=== PATIENT | female | born 1955 | race Caucasian/White ===

== ENCOUNTER 2016-08-05 14:27 | Emergency (ER) | payer MEDICARE ==
[2016-06-24 10:58] VITALS: BMI 31.0
[~2016-08-05 14:27] MED LIST: ACETAMINOPHEN500 M1 PO; BENADRYL50 MG PO; CARAFATE1 G PO; CELEXA20 MG PO; CELEXA40 MG PO; COLACE100 MG PO; COREG12.5 MG PO; CORTEF 5 MG TAB5 MG PO; CORTEF10 MG PO; DEMEROL50 MG PO; DILAUDID2 MG PO; DILAUDID4 MG PO; DILAUDID8 MG PO; ELAVIL25 MG PO; GLUCOPHAGE500 MG PO; HARVONI PO; HYDROCODONE-APA1 TAB PO; IMODIUM2 MG PO; K-TAB10 MEQ PO; LASIX20 MG PO; MERREM IV1 G/VIAL IV; NORCO 10/325 TA1 TA1 PO; NYSTATIN; PERCOCET 10/3251 TA1 PO; PERCOCET 7.5/321 TAB PO; PHENERGAN25 M1 PO; PRILOSEC20 MG PO; PROTONIX40 MG PO; SALINE FLUSH10 ML IV; SOMA350 MG PO; TUMS500 MG PO; TYLENOL W/CODEI1 TAB PO; VANCOMYCIN H1 G/VIA1 IV; XANAX0.5 MG PO; ZOFRAN4 MG PO
[2016-08-05 14:52] LABS: BASOPHILS 0.3 % (0.0-2.0); EOSINOPHILS 3.1 % (0-7); HEMOGLOBIN 16.6 g/dL (12-16); IMMATURE GRANULOCYTES 0.5 % (0-5); LYMPHOCYTES 37.5 % (15-50); MCH 32.8 pg (26.0-34.0); MCHC 35.3 g/dL (31.0-37.0); MCV 92.9 fL (80.0-100.0); MEAN PLATELET VOLUME 9.8 fL (7.4-10.4); MONOCYTES 5.6 % (2-11); RBC 5.06 10x6/uL (4.00-5.40); RDW 12.4 % (11.5-14.5); WBC 12.8 10x3/uL (4.8-10.8)
[2016-08-05 15:23] LABS: PLATELET COUNT 255 10x3/uL (130-400)
[2016-08-05 15:26] LABS: ALBUMIN 4.5 g/dL (3.4-5.0); ANION GAP 15.1 mmol/L (8-16); BILIRUBIN - TOTAL 0.53 mg/dL (0.2-1.3); CALCIUM 9.8 mg/dL (8.5-10.1); CARBON DIOXIDE 27.4 mmol/L (21.0-32.0); POTASSIUM - SERUM 4.5 mmol/L (3.5-5.1)
[2016-08-05 17:30] LABS: UDS - AMPHET NEGATIVE QUAL (NEGATIVE); UDS - BARB NEGATIVE QUAL (NEGATIVE); UDS - BENZO NEGATIVE QUAL (NEGATIVE); UDS - COCAINE NEGATIVE QUAL (NEGATIVE); UDS - METH NEGATIVE QUAL (NEGATIVE); UDS - OPIATE NEGATIVE QUAL (NEGATIVE); UDS - PCP NEGATIVE QUAL (NEGATIVE); UDS - THC POSITIVE QUAL (NEGATIVE)
[2016-08-05 17:49] LABS: APPEARANCE CLEAR (CLEAR); BILIRUBIN NEGATIVE (NEGATIVE); COLOR YELLOW (YELLOW); GLUCOSE NEGATIVE (NEGATIVE); KETONE MODERATE mg/dL (NEGATIVE); LEUKOCYTE ESTERASE TRACE (NEGATIVE); PROTEIN NEGATIVE (NEGATIVE); SPECIFIC GRAVITY 1.015 (1.005-1.020); UROBILINOGEN NORMAL (NORMAL)
[2016-08-05 17:50] LABS: EPITHELIAL CELLS 0-5 /hpf (0-5); RED CELLS - URINE 0-5 /hpf (0-5); WHITE CELLS - URINE 0-5 /hpf (0-5)
[2016-08-05 17:51] LABS: BACTERIA FEW /hpf (NONE SEEN); NITRITE NEGATIVE (NEGATIVE)
== END 2016-08-05 18:55 | disposition home or self-care (01) ==
LOC: D.ER 14:27
PROVIDERS: Emergency Medicine
DX: R10.9 Unspecified abdominal pain (principal); R19.7 Diarrhea, unspecified; K52.9 Noninfective gastroenteritis and colitis, unspecified; E27.1 Primary adrenocortical insufficiency; J44.9 Chronic obstructive pulmonary disease, unspecified; E11.9 Type 2 diabetes mellitus without complications; F17.200 Nicotine dependence, unspecified, uncomplicated

== ENCOUNTER → 2016-09-17 14:43 | Outpatient (CLI) | payer MEDICARE ==
[2016-06-24 10:58] VITALS: BMI 31.0
== END | disposition home or self-care (01) ==
LOC: D.LABREF 14:43
DX: A02.0 Salmonella enteritis (principal)

== ENCOUNTER → 2016-09-25 12:46 | Outpatient (CLI) | payer MEDICARE ==
[2016-06-24 10:58] VITALS: BMI 31.0
[2016-09-25 14:19] LABS: ALBUMIN 4.1 g/dL (3.4-5.0); ALKALINE PHOSPHATASE 67 U/L (46-116); ALT (SGPT) 22 U/L (10-68); BILIRUBIN - TOTAL 0.38 mg/dL (0.2-1.3); CARBON DIOXIDE 19.7 mmol/L (21.0-32.0); CHLORIDE - SERUM 105 mmol/L (98-107); CREATININE - SERUM 0.4 mg/dL (0.6-1.3); POTASSIUM - SERUM 5.4 mmol/L (3.5-5.1); PROTEIN - SERUM 7.4 g/dL (6.4-8.2); SODIUM 139 mmol/L (136-145); UREA NITROGEN 12 mg/dL (7-18); eGFR NON AFRICAN AMERICAN > 90 mL/min (90-120)
[2016-09-25 14:42] LABS: CALC OSMOLALITY 276 mosm/kg (275-300); CALCIUM 9.1 mg/dL (8.5-10.1); GLUCOSE 74 mg/dL (74-106)
== END | disposition home or self-care (01) ==
LOC: D.LABREF 12:46
PROVIDERS: Student in an Organized Health Care Education/Training Program
DX: R10.11 Right upper quadrant pain (principal); R50.9 Fever, unspecified

== ENCOUNTER → 2016-10-06 10:56 | Outpatient (CLI) | payer MEDICARE ==
[2016-06-24 10:58] VITALS: BMI 31.0
== END | disposition home or self-care (01) ==
LOC: D.CT 10-02 10:30
DX: R10.11 Right upper quadrant pain (principal)

== ENCOUNTER 2016-12-15 08:58 | Outpatient (CLI) | payer MEDICARE ==
[~2016-12-15] VITALS: Ht 160 cm; Wt 86.4 kg
[2016-12-15] MEDS ORDERED: OXYCONTIN10 MG PO (09:15)
[2016-12-15 09:20] VITALS: BP 142/85; Ht 160 cm; Wt 86.4 kg
--- NOTE | 2016-12-15 09:32 | NUR ---
ACCESSED POWER PORT WITH 19G X 1 INCH NEEDLE, SMALL BLOOD RETURN NOTED, DOES NOT DRAW WELL, PATIENT STATES "THEY CAN'T GET BLOOD FROM IT." FLUSHED WITH 10ML NS AND 5ML OF 100U/ML HEPARIN AND THEN REMOVED NEEDLE, TOLERATED WELL. BANDAID OVER SITE.
== END 2016-12-15 09:45 | disposition home or self-care (01) ==
LOC: D.OPS 08:58
DX: Z45.2 Encounter for adjustment and management of vascular access device (principal)

== ENCOUNTER → 2017-02-09 13:00 | Outpatient (CLI) | payer MEDICARE ==
[~2017-02-09 13:00] MED LIST changes: +OXYCONTIN10 MG PO
[2017-02-09 14:05] VITALS: BP 139/70; Ht 160 cm
--- NOTE | 2017-02-09 14:16 | NUR ---
1300 AMBULATORY TO 2508 FOR PORT FLUSH. 1320 ALLERGIES REVIEWED WITH PT. Catalino HARPER R.N. 1340 USING ASEPTIC TECHNIQUE, RIGHT UPPER CHEST PORT ACCESSED WITH 19 GAUGE 1.0" INCH NEEDLE. UNABLE TO DRAW BACK A BLOOD RETURN. PT STATES THERE WAS NOT A BLOOD RETURN @ LAST PORT FLUSH. SALINE FLUSH ADMINISTERED WITH NO PUFFING OR SWELLING @ SITE. PT STATES SHE CAN TASTE SALINE. HEPARIN FLUSH SOLUTION 5ML ADMINISTERED. NO COMPLAINTS OF PAIN VOICED. BANDAID TO SITE. Catalino HARPER R.N. 135 PT GIVEN DISCHARGE INSTRUCTIONS & MED REC. VOICED UNDERSTANDING. RELEASED AMBULATORY FROM UNIT WITH FRIEND. Catalino HARPER R.N.
== END | disposition home or self-care (01) ==
LOC: D.OPS 02-04 09:42
DX: Z45.2 Encounter for adjustment and management of vascular access device (principal)

== ENCOUNTER 2017-05-05 09:36 | Outpatient (CLI) | payer MEDICARE ==
[2017-05-05 10:22] VITALS: BMI 33.7
--- NOTE | 2017-05-05 16:52 | NUR ---
1045 PORT ATTEMPTED UNSUCCESSFULLY WITH 20G 1" BY THIS NURSE. PORT ACCESSED AND FLUSED SUCCESSFULLY WITH 19 G 11/2" BY FRANCINE DIAMOND RN, FLUSHED WITH NS AND HEPARIN 5CC. NO BLOOD RETURN HOWEVER. 1058 RELEASED AMB.
== END 2017-05-05 10:58 | disposition home or self-care (01) ==
LOC: D.OPS 09:36
DX: Z45.2 Encounter for adjustment and management of vascular access device (principal)

== ENCOUNTER → 2017-08-11 15:41 | Outpatient (CLI) | payer MEDICARE | END | disposition home or self-care (01) | LOC: D.OPS 15:30 | DX: Z45.2 Encounter for adjustment and management of vascular access device (principal) ==

== ENCOUNTER 2017-10-07 22:22 | Emergency (ER) | payer MEDICARE ==
[2017-10-07 23:35] LABS: BASOPHILS 0.2 % (0-2); EOSINOPHILS 2.4 % (0-7); HEMATOCRIT 41.8 % (36.0-48.0); HEMOGLOBIN 13.9 g/dL (12-16); IMMATURE GRANULOCYTES 0.5 % (0-5); MCH 30.3 pg (26.0-34.0); MCHC 33.3 g/dL (31.0-37.0); MCV 91.1 fL (80.0-100.0); MEAN PLATELET VOLUME 9.8 fL (7.4-10.4); MONOCYTES 4.7 % (2-11); NEUTROPHILS 73.2 % (40-80); PLATELET COUNT 221 10x3/uL (130-400); RBC 4.59 10x6/uL (4.00-5.40); RDW 14.5 % (11.5-14.5); WBC 13.1 10x3/uL (4.8-10.8)
[2017-10-07 23:39] LABS: APPEARANCE CLEAR (CLEAR); BILIRUBIN NEGATIVE (NEGATIVE); COLOR YELLOW (YELLOW); GLUCOSE NEGATIVE (NEGATIVE); KETONE NEGATIVE (NEGATIVE); NITRITE NEGATIVE (NEGATIVE); PROTEIN NEGATIVE (NEGATIVE); SPECIFIC GRAVITY 1.015 (1.005-1.020); UROBILINOGEN NORMAL (NORMAL)
[2017-10-07 23:45] LABS: ALBUMIN 3.8 g/dL (3.4-5.0); ANION GAP 15.7 mmol/L (8-16); BILIRUBIN - TOTAL 0.18 mg/dL (0.2-1.3); CALCIUM 8.8 mg/dL (8.5-10.1); CARBON DIOXIDE 26.1 mmol/L (21.0-32.0); CREATININE - SERUM 1.1 mg/dL (0.6-1.3); POTASSIUM - SERUM 3.8 mmol/L (3.5-5.1); PROTEIN - SERUM 7.6 g/dL (6.4-8.2)
== END 2017-10-08 00:25 | disposition home or self-care (01) ==
LOC: D.ER 22:22
PROVIDERS: Emergency Medicine
DX: R10.9 Unspecified abdominal pain (principal); F17.200 Nicotine dependence, unspecified, uncomplicated; E27.1 Primary adrenocortical insufficiency; J44.9 Chronic obstructive pulmonary disease, unspecified; E11.9 Type 2 diabetes mellitus without complications

== ENCOUNTER 2017-10-11 13:31 | Emergency (ER) | payer MEDICARE ==
[2017-10-11 14:46] LABS: BASOPHILS 0.3 % (0-2); EOSINOPHILS 3.4 % (0-7); HEMATOCRIT 42.8 % (36.0-48.0); HEMOGLOBIN 14.2 g/dL (12-16); IMMATURE GRANULOCYTES 0.4 % (0-5); LYMPHOCYTES 22.2 % (15-50); MCH 30.5 pg (26.0-34.0); MCHC 33.2 g/dL (31.0-37.0); MEAN PLATELET VOLUME 9.6 fL (7.4-10.4); NEUTROPHILS 67.7 % (40-80); PLATELET COUNT 217 10x3/uL (130-400); RBC 4.65 10x6/uL (4.00-5.40); RDW 14.3 % (11.5-14.5); WBC 12.1 10x3/uL (4.8-10.8)
[2017-10-11 15:06] LABS: ANION GAP 13.9 mmol/L (8-16); BILIRUBIN - TOTAL 0.15 mg/dL (0.2-1.3); CALCIUM 8.7 mg/dL (8.5-10.1); CARBON DIOXIDE 30.2 mmol/L (21.0-32.0); POTASSIUM - SERUM 5.1 mmol/L (3.5-5.1); PROTEIN - SERUM 7.7 g/dL (6.4-8.2)
[2017-10-11 15:20] LABS: APPEARANCE CLEAR (CLEAR); BILIRUBIN NEGATIVE (NEGATIVE); COLOR YELLOW (YELLOW); GLUCOSE NEGATIVE (NEGATIVE); KETONE NEGATIVE (NEGATIVE); NITRITE NEGATIVE (NEGATIVE); PROTEIN NEGATIVE (NEGATIVE); SPECIFIC GRAVITY 1.005 (1.005-1.020); UROBILINOGEN NORMAL (NORMAL)
[2017-10-11 15:21] LABS: WHITE CELLS - URINE 0-5 /hpf (0-5)
[2017-10-11 15:23] LABS: BACTERIA MODERATE /hpf (NONE SEEN); EPITHELIAL CELLS 0-5 /hpf (0-5)
[2017-10-11 16:03] LABS: INR 1.11 (0.85-1.17); PROTIME 13.9 SECONDS (11.6-15.0)
[2017-10-11 16:17] LABS: UDS - AMPHET NEGATIVE QUAL (NEGATIVE); UDS - BARB NEGATIVE QUAL (NEGATIVE); UDS - BENZO POSITIVE QUAL (NEGATIVE); UDS - COCAINE NEGATIVE QUAL (NEGATIVE); UDS - OPIATE POSITIVE QUAL (NEGATIVE); UDS - PCP NEGATIVE QUAL (NEGATIVE); UDS - THC POSITIVE QUAL (NEGATIVE)
[2017-10-11 16:21] LABS: CREATINE KINASE 73 UL (21-215); LIPASE 196 U/L (73-393); TROPONIN-I < 0.017 ng/mL (0.000-0.060)
== END 2017-10-11 17:53 | disposition home or self-care (01) ==
LOC: D.ER 13:31
PROVIDERS: Family Medicine; Nurse Practitioner Family
DX: N39.0 Urinary tract infection, site not specified (principal); R10.9 Unspecified abdominal pain; Z87.440 Personal history of urinary (tract) infections

== ENCOUNTER → 2017-11-29 18:05 | Outpatient (CLI) | payer MEDICARE | END | disposition home or self-care (01) | LOC: D.LABREF 18:05 | DX: N39.0 Urinary tract infection, site not specified (principal) ==

== ENCOUNTER → 2017-12-06 08:41 | Outpatient (CLI) | payer MEDICARE | END | disposition home or self-care (01) | LOC: D.CT 12-03 08:00 | DX: R31.21 Asymptomatic microscopic hematuria (principal) ==

== ENCOUNTER → 2017-12-27 19:39 | Outpatient (CLI) | payer MEDICARE ==
[~2017-12-27 19:39] MED LIST changes: +ATROVENT 0.02%2.5 ML UPD; +BENADRYL25 MG PO; +FLUTICASONE PRO16 GM NASAL; +KEFLEX500 MG PO; +MACROBID100 MG PO; +MEDROL DOSE PACK4 MG PO; +MUCINEX DM ER1 EAC1 PO; +OMNICEF300 MG PO; +PROVENTIL HFA6.7 GM INH; +SINGULAIR10 MG PO; +SYMBICORT 16010.2 GM INH; +ZPAK PO
== END | disposition home or self-care (01) ==
LOC: D.LAB 19:39
DX: N39.0 Urinary tract infection, site not specified (principal); R31.9 Hematuria, unspecified

== ENCOUNTER 2018-01-04 12:53 | Inpatient (IN) | payer MEDICARE ==
[~2018-01-04] VITALS: Ht 157.5 cm; Wt 94.5 kg
[~2018-01-04 12:53] MED LIST changes: -ATROVENT 0.02%2.5 ML UPD; -BENADRYL25 MG PO; -FLUTICASONE PRO16 GM NASAL; -KEFLEX500 MG PO; -MACROBID100 MG PO; -MEDROL DOSE PACK4 MG PO; -MUCINEX DM ER1 EAC1 PO; -OMNICEF300 MG PO; -PROVENTIL HFA6.7 GM INH; -SINGULAIR10 MG PO; -SYMBICORT 16010.2 GM INH; -ZPAK PO
[2018-01-04] MEDS ORDERED: PROTONIX40 MG PO (13:26)
[2018-01-04] MEDS ORDERED: MACROBID100 MG PO (13:26)
[2018-01-04] MEDS ORDERED: BENADRYL25 MG PO (13:27)
[2018-01-04] MEDS ORDERED: HYDROCODONE-APA1 TAB PO (13:28)
[2018-01-04] MEDS ORDERED: ACETAMINOPHEN500 M1 PO (13:28)
[2018-01-04 14:34] LABS: APPEARANCE CLEAR (CLEAR); BILIRUBIN NEGATIVE (NEGATIVE); COLOR YELLOW (YELLOW); GLUCOSE NEGATIVE (NEGATIVE); KETONE NEGATIVE (NEGATIVE); NITRITE NEGATIVE (NEGATIVE); PROTEIN NEGATIVE (NEGATIVE); SPECIFIC GRAVITY 1.015 (1.005-1.020); UROBILINOGEN NORMAL (NORMAL)
[2018-01-04 14:35] LABS: WHITE CELLS - URINE 0-5 /hpf (0-5)
[2018-01-04 14:36] VITALS: BP 123/59; BMI 34.8
[2018-01-04 14:36] LABS: BACTERIA FEW /hpf (NONE SEEN); EPITHELIAL CELLS 0-5 /hpf (0-5); RED CELLS - URINE 0-5 /hpf (0-5)
[2018-01-04 16:18] LABS: BASOPHILS 0.5 % (0-2); HEMATOCRIT 38.2 % (36.0-48.0); HEMOGLOBIN 12.8 g/dL (12-16); IMMATURE GRANULOCYTES 0.6 % (0-5); LYMPHOCYTES 27.2 % (15-50); MCH 30.9 pg (26.0-34.0); MCHC 33.5 g/dL (31.0-37.0); MCV 92.3 fL (80.0-100.0); MEAN PLATELET VOLUME 9.9 fL (7.4-10.4); MONOCYTES 6.9 % (2-11); NEUTROPHILS 58.8 % (40-80); PLATELET COUNT 194 10x3/uL (130-400); RBC 4.14 10x6/uL (4.00-5.40); RDW 15.3 % (11.5-14.5); WBC 10.3 10x3/uL (4.8-10.8)
[2018-01-04 17:21] LABS: ANION GAP 9.5 mmol/L (8-16); CALCIUM 8.1 mg/dL (8.5-10.1); CARBON DIOXIDE 28.7 mmol/L (21.0-32.0); CREATININE - SERUM 0.9 mg/dL (0.6-1.3); POTASSIUM - SERUM 4.2 mmol/L (3.5-5.1)
[2018-01-04] MEDS ORDERED: KEFLEX500 MG PO (18:19)
[2018-01-04 20:24] VITALS: BP 133/60
[2018-01-05 04:54] VITALS: BP 147/70
[2018-01-05 08:44] VITALS: BP 151/73
[2018-01-05 12:15] VITALS: BP 144/68
[2018-01-05 13:59] VITALS: Ht 157.5 cm; Wt 94.5 kg
[2018-01-05 20:46] VITALS: BP 132/63
[2018-01-06 04:00] VITALS: BP 157/84
[2018-01-06 07:54] VITALS: BP 123/59
[2018-01-06 10:57] VITALS: BP 131/62
[2018-01-06 12:19] LABS: IMMUNOGLOBULIN G 995 mg/dL (700-1600)
[2018-01-06 16:38] VITALS: BP 121/68
[2018-01-06 20:13] VITALS: BP 135/74
[2018-01-07 05:13] VITALS: BP 142/72
[2018-01-07 07:40] VITALS: BP 167/76
[2018-01-07 12:02] VITALS: BP 148/62
[2018-01-07 13:56] LABS: ANION GAP 14.6 mmol/L (8-16); CALCIUM 8.8 mg/dL (8.5-10.1); CARBON DIOXIDE 24.3 mmol/L (21.0-32.0); POTASSIUM - SERUM 3.9 mmol/L (3.5-5.1)
[2018-01-07] MEDS ORDERED: OMNICEF300 MG PO (15:24)
[2018-01-07] MEDS ORDERED: ZPAK PO (15:24)
[2018-01-07] MEDS ORDERED: MEDROL DOSE PACK4 MG PO (15:25)
[2018-01-07] MEDS ORDERED: ATROVENT 0.02%2.5 ML UPD (15:40)
[2018-01-07] MEDS ORDERED: PROVENTIL HFA6.7 GM INH (15:41)
[2018-01-07] MEDS ORDERED: SYMBICORT 16010.2 GM INH (15:42)
[2018-01-07] MEDS ORDERED: SINGULAIR10 MG PO (15:42)
[2018-01-07] MEDS ORDERED: FLUTICASONE PRO16 GM NASAL (15:42)
[2018-01-07] MEDS ORDERED: MUCINEX DM ER1 EAC1 PO (15:43)
[2018-01-14 12:19] LABS: IMMUNOGLOBULIN A 115 mg/dL (87-352); IMMUNOGLOBULIN E 182 IU/mL (0-100)
== END 2018-01-07 17:27 | disposition home or self-care (01) | DRG 689 ==
LOC: D.M2 12:53
PROVIDERS: Internal Medicine Pulmonary Disease; Urology
DX: N39.0 Urinary tract infection, site not specified (principal); J18.9 Pneumonia, unspecified organism; J44.0 Chronic obstructive pulmonary disease with (acute) lower respiratory infection; J44.1 Chronic obstructive pulmonary disease with (acute) exacerbation; E27.1 Primary adrenocortical insufficiency; M35.1 Other overlap syndromes; J30.9 Allergic rhinitis, unspecified; G47.33 Obstructive sleep apnea (adult) (pediatric); F17.200 Nicotine dependence, unspecified, uncomplicated; Z95.0 Presence of cardiac pacemaker; K75.9 Inflammatory liver disease, unspecified; K21.9 Gastro-esophageal reflux disease without esophagitis

== ENCOUNTER 2018-03-04 13:38 | Outpatient (CLI) | payer MEDICARE ==
[~2018-03-04] VITALS: Ht 157.5 cm; Wt 86.4 kg
[~2018-03-04 13:38] MED LIST changes: +ATROVENT 0.02%2.5 ML UPD; +BENADRYL25 MG PO; +FLUTICASONE PRO16 GM NASAL; +KEFLEX500 MG PO; +MACROBID100 MG PO; +MEDROL DOSE PACK4 MG PO; +MUCINEX DM ER1 EAC1 PO; +OMNICEF300 MG PO; +PROVENTIL HFA6.7 GM INH; +SINGULAIR10 MG PO; +SYMBICORT 16010.2 GM INH; +ZPAK PO
[2018-03-04 14:51] VITALS: BP 126/85; Ht 157.5 cm; Wt 86.4 kg
== END 2018-03-04 15:15 ==
LOC: D.OPS 13:38
DX: Z79.899 Other long term (current) drug therapy (principal); Z01.812 Encounter for preprocedural laboratory examination

== ENCOUNTER 2018-05-19 13:17 | Outpatient (CLI) | payer MEDICARE ==
[~2018-05-19] VITALS: Ht 157.5 cm; Wt 83.2 kg
[2018-05-19 14:21] VITALS: BP 182/93; Ht 157.5 cm; Wt 83.2 kg
== END 2018-05-19 14:20 | disposition home or self-care (01) ==
LOC: D.OPS 13:17
DX: Z79.899 Other long term (current) drug therapy (principal)

== ENCOUNTER 2018-08-15 15:22 | Outpatient (CLI) | payer MEDICARE ==
[~2018-08-15] VITALS: Ht 157.5 cm; Wt 86.4 kg
[2018-08-15 15:54] VITALS: BP 173/95; Ht 157.5 cm; Wt 86.4 kg
--- NOTE | 2018-08-15 16:15 | NUR ---
PORT ACESSED USING STERILE TECHNIQUE, PORT FLUSHED AT THIS TIME WITH 5ML HEPARIN FLUSH, PT TOLERATED WELL.
== END 2018-08-15 16:20 | disposition home or self-care (01) ==
LOC: D.OPS 15:22
DX: R23.2 Flushing (principal)

== ENCOUNTER 2018-09-23 15:27 | Emergency (ER) | payer MEDICARE ==
[~2018-09-23] VITALS: Ht 157.5 cm; Wt 86.4 kg
[2018-09-23 15:37] VITALS: Ht 157.5 cm; Wt 86.4 kg
[2018-09-23] MEDS ORDERED: CARAFATE1 G PO (15:42)
[2018-09-23] MEDS ORDERED: HTN MED (15:42)
[2018-09-23 16:23] LABS: BASOPHILS 0.4 % (0-2); EOSINOPHILS 2.2 % (0-7); HEMATOCRIT 40.7 % (36.0-48.0); HEMOGLOBIN 14.1 g/dL (12-16); IMMATURE GRANULOCYTES 0.2 % (0-5); LYMPHOCYTES 32.6 % (15-50); MCH 31.9 pg (26.0-34.0); MCHC 34.6 g/dL (31.0-37.0); MCV 92.1 fL (80.0-100.0); MEAN PLATELET VOLUME 9.5 fL (7.4-10.4); MONOCYTES 7.5 % (2-11); NEUTROPHILS 57.1 % (40-80); RBC 4.42 10x6/uL (4.00-5.40)
[2018-09-23 16:54] LABS: PLATELET COUNT 234 10x3/uL (130-400)
[2018-09-23 17:09] LABS: ALKALINE PHOSPHATASE 87 U/L (46-116); ALT (SGPT) 17 U/L (10-68); BILIRUBIN - TOTAL 0.26 mg/dL (0.2-1.3); CALC OSMOLALITY 285 mosm/kg (275-300); CALCIUM 8.8 mg/dL (8.5-10.1); CARBON DIOXIDE 27.2 mmol/L (21.0-32.0); CHLORIDE - SERUM 104 mmol/L (98-107); CREATININE - SERUM 0.9 mg/dL (0.6-1.3); GLUCOSE 86 mg/dL (74-106); POTASSIUM - SERUM 4.1 mmol/L (3.5-5.1); PROTEIN - SERUM 7.3 g/dL (6.4-8.2); SODIUM 144 mmol/L (136-145); UREA NITROGEN 12 mg/dL (7-18); eGFR NON AFRICAN AMERICAN 67 mL/min (90-120)
[2018-09-23 17:11] LABS: APPEARANCE CLEAR (CLEAR); BILIRUBIN NEGATIVE (NEGATIVE); COLOR YELLOW (YELLOW); GLUCOSE NEGATIVE (NEGATIVE); KETONE NEGATIVE (NEGATIVE); NITRITE NEGATIVE (NEGATIVE); PROTEIN NEGATIVE (NEGATIVE); SPECIFIC GRAVITY 1.005 (1.005-1.020); UROBILINOGEN NORMAL (NORMAL)
[2018-09-23 17:12] LABS: RED CELLS - URINE OCC /hpf (0-5); WHITE CELLS - URINE OCC /hpf (0-5)
[2018-09-23 17:13] LABS: AMYLASE - SERUM 82 U/L (25-115); LIPASE 97 U/L (73-393)
[2018-09-23 17:21] LABS: TROPONIN-I < 0.017 ng/mL (0.000-0.060)
[2018-09-23] MEDS ORDERED: GOLYTELY SOLU4000 ML PO (18:50)
[2018-09-23 19:54] VITALS: BP 167/90
== END 2018-09-23 19:54 | disposition home or self-care (01) ==
LOC: D.ER 15:27
PROVIDERS: Family Medicine
DX: K59.00 Constipation, unspecified (principal); R11.2 Nausea with vomiting, unspecified

== ENCOUNTER → 2018-11-22 15:34 | Outpatient (CLI) | payer MEDICARE ==
[2018-09-23 15:37] VITALS: BMI 34.8
[~2018-11-22 15:34] MED LIST changes: +GOLYTELY SOLU4000 ML PO; +HTN MED
== END | disposition home or self-care (01) ==
LOC: D.CT 15:34
PROVIDERS: ATTEND Family Medicine
DX: R59.0 Localized enlarged lymph nodes (principal)

== ENCOUNTER → 2018-12-15 16:13 | Outpatient (CLI) | payer MEDICARE | END | disposition home or self-care (01) | LOC: D.CT 16:13 | DX: R59.0 Localized enlarged lymph nodes (principal) ==

== ENCOUNTER 2019-02-04 21:30 | Inpatient (IN) | payer MEDICARE ==
[~2019-02-04] VITALS: Ht 157.5 cm; Wt 93.4 kg
[2019-02-04] MEDS ORDERED: PHENERGAN25 M1 PO (21:56)
[2019-02-04] MEDS ORDERED: BENTYL10 MG PO (21:57)
[2019-02-04 22:17] LABS: BASOPHILS 0.4 % (0-2); HEMATOCRIT 41.4 % (36.0-48.0); HEMOGLOBIN 14.2 g/dL (12-16); IMMATURE GRANULOCYTES 0.5 % (0-5); LYMPHOCYTES 27.6 % (15-50); MCH 31.3 pg (26.0-34.0); MCHC 34.3 g/dL (31.0-37.0); MCV 91.2 fL (80.0-100.0); MEAN PLATELET VOLUME 9.3 fL (7.4-10.4); MONOCYTES 8.4 % (2-11); NEUTROPHILS 58.1 % (40-80); PLATELET COUNT 248 10x3/uL (130-400); RBC 4.54 10x6/uL (4.00-5.40); WBC 14.4 10x3/uL (4.8-10.8)
[2019-02-04 22:33] LABS: ALBUMIN 4.2 g/dL (3.4-5.0); ALKALINE PHOSPHATASE 106 U/L (46-116); ALT (SGPT) 17 U/L (10-68); BILIRUBIN - TOTAL 0.24 mg/dL (0.2-1.3); CALC OSMOLALITY 278 mosm/kg (275-300); CALCIUM 8.8 mg/dL (8.5-10.1); CARBON DIOXIDE 30.3 mmol/L (21.0-32.0); CHLORIDE - SERUM 102 mmol/L (98-107); GLUCOSE 96 mg/dL (74-106); POTASSIUM - SERUM 4.5 mmol/L (3.5-5.1); PROTEIN - SERUM 7.9 g/dL (6.4-8.2); SODIUM 138 mmol/L (136-145); UREA NITROGEN 21 mg/dL (7-18); eGFR NON AFRICAN AMERICAN 59 mL/min (90-120)
[2019-02-04 22:36] LABS: AMYLASE - SERUM 124 U/L (25-115); LIPASE 254 U/L (73-393); TROPONIN-I < 0.017 ng/mL (0.000-0.060)
--- NOTE | 2019-02-04 22:39 | NUR ---
URINE TO LAB.
[2019-02-04 22:56] LABS: APPEARANCE CLEAR (CLEAR); BILIRUBIN NEGATIVE (NEGATIVE); COLOR YELLOW (YELLOW); GLUCOSE NEGATIVE (NEGATIVE); KETONE NEGATIVE (NEGATIVE); NITRITE NEGATIVE (NEGATIVE); PROTEIN NEGATIVE (NEGATIVE); SPECIFIC GRAVITY 1.015 (1.005-1.020); UROBILINOGEN NORMAL (NORMAL)
--- NOTE | 2019-02-04 23:18 | NUR ---
PT'S INFUSAPORT ACCESSED TO RIGHT CHEST WALL. STATES HAS HAD THIS POWER POINT INFUSAPORT FOR 3 YEARS. STERILE TECHNIQUE USED. BLOOD RETURN NOTED.
[2019-02-04 23:59] VITALS: BP 128/79
--- NOTE | 2019-02-05 02:01 | NUR ---
PT STATES "FEELING BETTER" AFTER LAST DOSE OF MEDICATION.
[2019-02-05 02:55] VITALS: BP 152/64; BMI 37.7
--- NOTE | 2019-02-05 04:50 | NUR ---
PT RESTING WITH EYES CLOSED, RESP EVEN NON LABORED NO DISTRESS NOTED
--- NOTE | 2019-02-05 07:35 | NUR ---
PT ALERT AND ORIENTED. NO C/O PAIN. C/O NAUSEA, GAVE ZOFRAN FOR NAUSEA. NO S/S OF ACUTE DISTRESS NOTED. RIGHT CHEST INFUSAPORT, NS INFUSING @ 125ML/HR. SITE PATENT WITHOUT REDNESS OR SWELLING. PT DENIES ANY NEEDS AT THIS TIME. CALL LIGHT IN REACH. WILL CONTINUE TO MONITOR.
[2019-02-05 09:19] LABS: BASOPHILS 0.5 % (0-2); HEMATOCRIT 37.9 % (36.0-48.0); HEMOGLOBIN 12.6 g/dL (12-16); IMMATURE GRANULOCYTES 0.4 % (0-5); LYMPHOCYTES 38.8 % (15-50); MCH 30.5 pg (26.0-34.0); MCHC 33.2 g/dL (31.0-37.0); MCV 91.8 fL (80.0-100.0); MEAN PLATELET VOLUME 9.4 fL (7.4-10.4); MONOCYTES 9.1 % (2-11); NEUTROPHILS 45.2 % (40-80); PLATELET COUNT 221 10x3/uL (130-400); RBC 4.13 10x6/uL (4.00-5.40); RDW 14.1 % (11.5-14.5)
[2019-02-05 09:22] LABS: WBC 10.6 10x3/uL (4.8-10.8)
[2019-02-05 09:34] LABS: ALBUMIN 3.3 g/dL (3.4-5.0); ANION GAP 8.2 mmol/L (8-16); BILIRUBIN - TOTAL 0.32 mg/dL (0.2-1.3); CALCIUM 7.8 mg/dL (8.5-10.1); CREATININE - SERUM 0.9 mg/dL (0.6-1.3); POTASSIUM - SERUM 4.2 mmol/L (3.5-5.1); PROTEIN - SERUM 6.3 g/dL (6.4-8.2)
[2019-02-05 09:50] VITALS: BP 145/82
[2019-02-05 12:59] VITALS: BP 132/60
--- NOTE | 2019-02-05 17:53 | NUR ---
PT ALERT AND ORIENTED. FAMILY AT BEDSIDE. NO C/O PAIN. NO S/S OF ACUTE DISTRESS NOTED. CALL LIGHT IN REACH. PT DENIES ANY NEEDS AT THIS TIME. WILL CONTINUE TO MONITOR.
[2019-02-05 18:47] VITALS: BP 130/53
[2019-02-05 20:00] VITALS: BP 155/76
--- NOTE | 2019-02-05 20:32 | NUR ---
RCV`D PT. PT SITTING UP BED NO SIGNS OF DISTRESS. STATES THAT SHE STILL HASNT HAVE A BM. VOICED CONCERNED ABOUT NOT BEING STARTED ON HER HOME MED.S CELEXA AND CORTEF, AFTER CHECKING HER CHART I NOTIFIED THAT THEY HAD BEEN STARTED AND SHE WOULD RECEIVE THEM AT 9PM. SHE DENIES ANY FURTHER NEEDS AT THIS TIME. BED LOW, CALL LIGHT IN REACH, RAILS UP X 2. WILL CONTINUE TO MONITOR.
--- NOTE | 2019-02-05 20:42 | NUR ---
FSBS 85, NO TREATMENT NEEDED.
[2019-02-06] VITALS: BP 136/64
[2019-02-06 04:00] VITALS: BP 164/81
[2019-02-06 04:44] LABS: ANION GAP 6.6 mmol/L (8-16); CALCIUM 8.2 mg/dL (8.5-10.1); CARBON DIOXIDE 32.4 mmol/L (21.0-32.0); CREATININE - SERUM 0.9 mg/dL (0.6-1.3)
[2019-02-06 04:46] LABS: BASOPHILS 0.4 % (0-2); EOSINOPHILS 3.7 % (0-7); HEMATOCRIT 38.2 % (36.0-48.0); HEMOGLOBIN 12.7 g/dL (12-16); IMMATURE GRANULOCYTES 0.2 % (0-5); LYMPHOCYTES 26.5 % (15-50); MCH 30.5 pg (26.0-34.0); MCHC 33.2 g/dL (31.0-37.0); MCV 91.6 fL (80.0-100.0); MEAN PLATELET VOLUME 9.8 fL (7.4-10.4); NEUTROPHILS 63.2 % (40-80); PLATELET COUNT 230 10x3/uL (130-400); RBC 4.17 10x6/uL (4.00-5.40); RDW 13.8 % (11.5-14.5); WBC 9.9 10x3/uL (4.8-10.8)
[2019-02-06 08:53] VITALS: BP 145/55
[2019-02-06 12:20] VITALS: Ht 157.5 cm; Wt 93.4 kg
--- NOTE | 2019-02-06 12:39 | NUR ---
REFUSED TO WEAR TELEMETRY. WAS DC AT THIS TIME. C/L IN REACH AT BEDSIDE.
[2019-02-06] MEDS ORDERED: PROTONIX40 MG PO (12:43)
[2019-02-06] MEDS ORDERED: FLAGYL500 MG PO (12:44)
[2019-02-06] MEDS ORDERED: DOXYCYCLINE HY100 M2 PO (12:44)
[2019-02-06] MEDS ORDERED: MIRALAX17 GM PO (12:44)
--- NOTE | 2019-02-06 13:02 | NUR ---
I have reviewed this patient and I concur with the Shift Assessment completed by the Licensed Practical Nurse today this shift.
[2019-02-06 13:56] VITALS: BP 152/84
--- NOTE | 2019-02-06 14:17 | MORECARE ---
CASE MANAGEMENT DISCHARGE SUMMARY PATIENT: ELAYNE SEE UNIT: [id number] ADM DATE: 02/05/19 AGE: 63 : 51 SEX: F ROOM/BED: D.2213 AUTHOR: FREDA HAY PHYSICIAN: REFERRING PHYSICIAN: KARMEN MARTINEZ MD DATE OF SERVICE: 02/06/19 Discharge Plan Patient Name: ELAYNE SEE [facility] [facility] 1955 Planned Disposition: Home Anticipated Discharge Date: Discharge Date: Expected LOS: Initial Reviewer: [email or web address] Initial Review Date: 02/06/2019 Generated: 02/06/19 3:17 pm DCPIA - Discharge Planning Initial Assessment Updated by [email or web address]: Brandi Bello on 02/06/19 2:15 pm * Is the patient Alert and Oriented? Yes * How many steps to enter\exit or inside your home? 2/0 * PCP Dr. Kapoor * Preadmission Environment Home with Family * ADLs Independent * Equipment CPAP Nebulizer * List name and contact numbers for known caregivers / representatives who currently or will assist patient after discharge: Alexandr Marie - [facility] - [phone] * Verbal permission to speak to the caregivers and representatives has been obtained from the patient. Yes * Community resources currently utilized None * Please name any agencies selected above. DME preference is [facility] [place] * Additional services required to return to the preadmission environment? No * Can the patient safely return to the preadmission environment? Yes * Has this patient been hospitalized within the prior 30 days at any hospital? No Patient Name: ELAYNE SEE Page [phone] at 1417 All edits/amendments must be made on the electronic document DICTATION DATE: 02/06/191415 TOOLS ADMINISTRATOR: LETHA 02/06/191415 RPT#: [id number] DC DATE: STATUS: ADM IN [facility] [address] [place] [address] END OF REPORT
--- NOTE | 2019-02-06 14:25 | MORECARE ---
CASE MANAGEMENT DISCHARGE SUMMARY PATIENT: ELAYNE SEE UNIT: [id number] ADM DATE: 02/05/19 AGE: 63 : 51 SEX: F ROOM/BED: D.2213 AUTHOR: SATNAMDOC PHYSICIAN: REFERRING PHYSICIAN: KARMEN MARTINEZ MD DATE OF SERVICE: 02/06/19 Discharge Plan Patient Name: ELAYNE SEE Facility: [facility]:[place] : 1955 Planned Disposition: Home Anticipated Discharge Date: Discharge Date: Expected LOS: Initial Reviewer: [email or web address] Initial Review Date: 02/06/2019 Generated: 02/06/19 3:25 pm Comments DCP- Discharge Planning Updated by [email or web address]: Brandi Bello on 02/06/19 1:[address] Patient Name: ELAYNE SEE Admission Status: ER Accout number: [id number] Admission Date: 02-05-2019 : 1955 Admission Diagnosis: Attending: KARMEN MARTINEZ Current LOS: 1 Anticipated DC Date: Planned Disposition: Home Primary Insurance: [facility] [employer]UTIONS Discharge Planning Comments: CM met with patient to complete initial dc planning assessment. CM educated patient on the CM role and verbal consent given by patient to complete assessment. Patient lives at home with her . At discharge patient plans to return and feels this is a safe discharge. CM discussed availability of home health, rehab services, and medical equipment. Patient denied known discharge needs at this time. CM will continue to follow and will assist as needed with dc plans/needs. Campus Monitor: Brandi Bello DCPIA - Discharge Planning Initial Assessment Updated by [email or web address]: Brandi Bello on 02/06/19 2:15 pm * Is the patient Alert and Oriented? Yes * How many steps to enter\exit or inside your home? 2/0 * PCP Dr. Kapoor * Preadmission Environment Home with Family * ADLs Independent * Equipment CPAP Nebulizer * List name and contact numbers for known caregivers / representatives who currently or will assist patient after discharge: Alexandr Marie - [facility] - [phone] * Verbal permission to speak to the caregivers and representatives has been obtained from the patient. Yes * Community resources currently utilized None * Please name any agencies selected above. DME preference is [facility] [place] * Additional services required to return to the preadmission environment? No * Can the patient safely return to the preadmission environment? Yes * Has this patient been hospitalized within the prior 30 days at any hospital? No Last DP export: 02/06/19 1:17 p Patient Name: ELAYNE SEE Page [id number] at 1425 All edits/amendments must be made on the electronic document DICTATION DATE: 02/06/191424 POWER PLANT ASSISTANT: LETHA 02/06/19 1425 RPT#: [id number] DC DATE: STATUS: ADM IN [facility] [address] [place] [address] END OF REPORT
[2019-02-06] MEDS ORDERED: HYDROCODON-ACE1 EA10 PO (16:30)
--- NOTE | 2019-02-06 17:37 | NUR ---
DC HOME AT THIS TIME VOICE UNDERSTANDING OF DC ORDERS. PORT DEACCESSED BY RN AT THIS TIME. LOS AT BEDSIDE.
--- NOTE | 2019-02-08 07:44 | MORECARE ---
CASE MANAGEMENT DISCHARGE SUMMARY PATIENT: ELAYNE SEE UNIT: [id number] ADM DATE: 02/05/19 AGE: 63 : 51 SEX: F ROOM/BED: D.2213 AUTHOR: SATNAMDOC PHYSICIAN: REFERRING PHYSICIAN: KARMEN MARTINEZ MD DATE OF SERVICE: 02/08/19 Discharge Plan Patient Name: ELAYNE SEE Facility: [facility]:[place] : 1955 Planned Disposition: Home Anticipated Discharge Date: Discharge Date: 02/06/2019 Expected LOS: 0 Initial Reviewer: [email or web address] Initial Review Date: 02/06/2019 Generated: 02/08/19 8:44 am Comments DCP- Discharge Planning Updated by [email or web address]: Brandi Blelo on 02/06/19 1:[address] Patient Name: ELAYNE SEE Admission Status: ER Accout number: [id number] Admission Date: 02-05-2019 : 1955 Admission Diagnosis: Attending: KARMEN MARTINEZ Current LOS: 1 Anticipated DC Date: Planned Disposition: Home Primary Insurance: [facility] MEDIC[employer] SOLUTIONS Discharge Planning Comments: CM met with patient to complete initial dc planning assessment. CM educated patient on the CM role and verbal consent given by patient to complete assessment. Patient lives at home with her . At discharge patient plans to return and feels this is a safe discharge. CM discussed availability of home health, rehab services, and medical equipment. Patient denied known discharge needs at this time. CM will continue to follow and will assist as needed with dc plans/needs. Shucker: Brandi Bello DCPIA - Discharge Planning Initial Assessment Updated by [email or web address]: Brandi Bello on 02/06/19 2:15 pm * Is the patient Alert and Oriented? Yes * How many steps to enter\exit or inside your home? 2/0 * PCP Dr. Kapoor * Preadmission Environment Home with Family * ADLs Independent * Equipment CPAP Nebulizer * List name and contact numbers for known caregivers / representatives who currently or will assist patient after discharge: Alexandr Marie [facility] - [phone] * Verbal permission to speak to the caregivers and representatives has been obtained from the patient. Yes * Community resources currently utilized None * Please name any agencies selected above. DME preference is [facility] [place] * Additional services required to return to the preadmission environment? No * Can the patient safely return to the preadmission environment? Yes * Has this patient been hospitalized within the prior 30 days at any hospital? No Last DP export: 02/06/19 1:25 p Patient Name: ELAYNE SEE Page [id number] at 0744 All edits/amendments must be made on the electronic document DICTATION DATE: 02/08/1946 EYEGLASS FITTER: LETHA 02/08/1946 RPT#: [id number] DC DATE:02/06/19 STATUS: DIS IN [facility] [address] [place] [address] END OF REPORT
== END 2019-02-06 17:41 | disposition home or self-care (01) | DRG 386 ==
LOC: D.ER 21:30 → D.MS 02-05 01:42
PROVIDERS: Family Medicine; ADMIT Internal Medicine Nephrology; ATTEND Internal Medicine Nephrology
DX: K51.90 Ulcerative colitis, unspecified, without complications (principal); E27.1 Primary adrenocortical insufficiency; F17.213 Nicotine dependence, cigarettes, with withdrawal; K59.00 Constipation, unspecified; I10 Essential (primary) hypertension; J44.9 Chronic obstructive pulmonary disease, unspecified; F12.90 Cannabis use, unspecified, uncomplicated; K21.9 Gastro-esophageal reflux disease without esophagitis; E86.0 Dehydration; E11.43 Type 2 diabetes mellitus with diabetic autonomic (poly)neuropathy; K31.84 Gastroparesis; K58.1 Irritable bowel syndrome with constipation

== ENCOUNTER 2019-04-03 18:53 | Emergency (ER) | payer MEDICARE ==
[~2019-04-03] VITALS: Ht 157.5 cm; Wt 81.8 kg
[~2019-04-03 18:53] MED LIST changes: +BENTYL10 MG PO; +DOXYCYCLINE HY100 M2 PO; +FLAGYL500 MG PO; +HYDROCODON-ACE1 EA10 PO; +MIRALAX17 GM PO
[2019-04-03 18:57] VITALS: Ht 157.5 cm; Wt 81.8 kg
[2019-04-03 19:55] LABS: APTT 28.9 SECONDS (22.8-39.4); INR 1.11 (0.85-1.17); PROTIME 13.8 SECONDS (11.6-15.0)
[2019-04-03 19:56] LABS: BASOPHILS 0.6 % (0-2); D-DIMER-QUANTITATIVE 0.68 ug/mLFEU (0.20-0.54); EOSINOPHILS 4.8 % (0-7); HEMATOCRIT 42.7 % (36.0-48.0); HEMOGLOBIN 15.2 g/dL (12-16); IMMATURE GRANULOCYTES 0.4 % (0-5); LYMPHOCYTES 39.8 % (15-50); MCH 31.7 pg (26.0-34.0); MCHC 35.6 g/dL (31.0-37.0); MCV 89.1 fL (80.0-100.0); MEAN PLATELET VOLUME 9.4 fL (7.4-10.4); MONOCYTES 6.8 % (2-11); NEUTROPHILS 47.6 % (40-80); PLATELET COUNT 247 10x3/uL (130-400); RBC 4.79 10x6/uL (4.00-5.40); RDW 13.5 % (11.5-14.5); WBC 12.1 10x3/uL (4.8-10.8)
[2019-04-03 20:02] LABS: ALBUMIN 4.1 g/dL (3.4-5.0); ALKALINE PHOSPHATASE 102 U/L (46-116); ALT (SGPT) 20 U/L (10-68); BILIRUBIN - TOTAL 0.23 mg/dL (0.2-1.3); CALC OSMOLALITY 283 mosm/kg (275-300); CARBON DIOXIDE 26.4 mmol/L (21.0-32.0); CHLORIDE - SERUM 103 mmol/L (98-107); CREATININE - SERUM 0.8 mg/dL (0.6-1.3); GLUCOSE 93 mg/dL (74-106); POTASSIUM - SERUM 4.2 mmol/L (3.5-5.1); PROTEIN - SERUM 7.5 g/dL (6.4-8.2); SODIUM 142 mmol/L (136-145); UREA NITROGEN 15 mg/dL (7-18); eGFR NON AFRICAN AMERICAN 76 mL/min (90-120)
[2019-04-03 20:13] LABS: CKMB 1.1 U/L (0.0-3.6); CREATINE KINASE 52 UL (21-215); PRO BNP 141 pg/mL (0-125); TROPONIN-I < 0.017 ng/mL (0.000-0.060)
[2019-04-03] MEDS ORDERED: VIBRAMYCIN 100100 MG PO (23:21)
[2019-04-03] MEDS ORDERED: PROVENTIL/2.5 MG/3 M INH (23:21)
[2019-04-03 23:46] VITALS: BP 129/74
== END 2019-04-03 23:47 | disposition home or self-care (01) ==
LOC: D.ER 18:53
PROVIDERS: Family Medicine
DX: R07.81 Pleurodynia (principal); E27.1 Primary adrenocortical insufficiency; E11.9 Type 2 diabetes mellitus without complications; R05 Cough; J20.9 Acute bronchitis, unspecified; Z86.718 Personal history of other venous thrombosis and embolism

== ENCOUNTER → 2019-12-07 12:43 | Outpatient (CLI) | payer MEDICARE ==
[2019-04-03 18:57] VITALS: BMI 33.0
[~2019-12-07 12:43] MED LIST changes: +PROVENTIL/2.5 MG/3 M INH; +VIBRAMYCIN 100100 MG PO
== END | disposition home or self-care (01) ==
LOC: D.CT 12:43
PROVIDERS: ATTEND Family Medicine
DX: R10.9 Unspecified abdominal pain (principal)

== ENCOUNTER → 2020-10-28 09:22 | Outpatient (CLI) | payer MEDICARE ==
[2019-04-03 18:57] VITALS: BMI 33.0
== END | disposition home or self-care (01) ==
LOC: D.CT 09:00
PROVIDERS: ATTEND Family Medicine
DX: R10.12 Left upper quadrant pain (principal)